=== PATIENT | male | born 1935 | race Caucasian/White ===

== ENCOUNTER 2021-09-26 16:01 | Inpatient (IN) | payer MEDICARE ==
[~2021-09-26] VITALS: Ht 180.3 cm; Wt 72.7 kg
--- NOTE | 2021-09-26 20:15 | EKG ---
[facility] [address] [facility] [place], [place] [address] Signed Atrial fibrillation with rapid ventricular response ST \T\ T wave abnormality, consider anterior ischemia Abnormal ECG No previous ECGs available Confirmed by CORNELIA CUNNINGHAM MD ([id number] on 09/26/2021 8:15:02 PM Electronically Signed By: CORNELIA CUNNINGHAM MD 09/26/212014 PATIENT NAME: JOSE WRIGHT Electrocardiogram DATE OF : [birth year] PHYSICIAN: CORNELIA CUNNINGHAM MD REPORT #: [id number] REPORT IS CONFIDENTIAL AND NOT TO BE RELEASED WITHOUT AUTHORIZATION
[2021-09-27] MEDS ORDERED: ACETAMINOPHEN325 M1 PO (04:23)
[2021-09-27] MEDS ORDERED: LACTOBACILLUS1 EAC2 PO (04:25)
[2021-09-27] MEDS ORDERED: AMIODARONE HCL200 MG PO (04:26)
[2021-09-27] MEDS ORDERED: AMITRIPTYLINE H25 MG PO (04:27)
[2021-09-27] MEDS ORDERED: FERROUS SULFAT325 M2 PO (04:28)
[2021-09-27] MEDS ORDERED: GLUCAGON EMERGEN1 MG IM (04:32)
[2021-09-27] MEDS ORDERED: SENNA8.6 MG PO (04:32)
[2021-09-27] MEDS ORDERED: VITAMIN C500 M1 PO (04:33)
[2021-09-27] MEDS ORDERED: METOPROLOL SUCC25 MG PO (10:23)
[2021-09-27] MEDS ORDERED: ALLOPURINOL100 MG PO (10:24)
[2021-09-27] MEDS ORDERED: ELIQUIS2.5 MG PO (10:27)
[2021-09-27] MEDS ORDERED: SIMVASTATIN10 MG PO (10:28)
[2021-09-27] MEDS ORDERED: DIGOXIN125 MCG PO (10:29)
[2021-09-27] MEDS ORDERED: PROBIOTIC ACID1 EAC2 PO (11:38)
[2021-09-27] MEDS ORDERED: DULCOLAX10 MG PR (11:40)
[2021-10-04] MEDS ORDERED: FERROUS SULFAT325 M2 PO (13:52)
[2021-10-04] MEDS ORDERED: SUCRALFATE1 GM PO (13:55)
[2021-10-04] MEDS ORDERED: PANTOPRAZOLE SO40 MG PO (13:56)
== END 2021-10-04 15:00 | DRG 811 ==
LOC: ED 16:01 → CCU 18:48 → EDBD 18:48 → MS 10-01 15:18
PROVIDERS: ADMIT Internal Medicine; ATTEND Internal Medicine
PROC: 30233N1 Transfusion of Nonautologous Red Blood Cells into Peripheral Vein, Percutaneous Approach (ICD-10-PCS; principal; 2021-09-26)
PROC: 3E033XZ Introduction of Vasopressor into Peripheral Vein, Percutaneous Approach (ICD-10-PCS; 2021-09-26)
DX: D62 Acute posthemorrhagic anemia (principal); L89.154 Pressure ulcer of sacral region, stage 4; R57.1 Hypovolemic shock; R57.0 Cardiogenic shock; I50.23 Acute on chronic systolic (congestive) heart failure; R57.8 Other shock; N30.00 Acute cystitis without hematuria; N17.9 Acute kidney failure, unspecified; K92.1 Melena; Z66 Do not resuscitate; Z20.822 Contact with and (suspected) exposure to COVID-19; N18.30 Chronic kidney disease, stage 3 unspecified; E11.51 Type 2 diabetes mellitus with diabetic peripheral angiopathy without gangrene; E11.22 Type 2 diabetes mellitus with diabetic chronic kidney disease; N31.9 Neuromuscular dysfunction of bladder, unspecified; D69.6 Thrombocytopenia, unspecified; I48.0 Paroxysmal atrial fibrillation; E78.5 Hyperlipidemia, unspecified; E79.0 Hyperuricemia without signs of inflammatory arthritis and tophaceous disease; B96.5 Pseudomonas (aeruginosa) (mallei) (pseudomallei) as the cause of diseases classified elsewhere; Z79.01 Long term (current) use of anticoagulants; Z88.0 Allergy status to penicillin; Z79.899 Other long term (current) drug therapy
CPT/HCPCS: 36415; 71045; 80048; 80053; 81001; 82533; 82728; 83615; 83735; 83880; 84484; 85025; 85060; 85610; 85730; 86704; 86706; 86803; 86850; 86870; 86900; 86901; 86922; 87040; 87088; 87186; 87338; 87340; 87502; 93005; 93010; 93306; 94640; 94660; 94760; 97162; 97166; 97530; A9270; C9113; C9803; J0692; J1200; J1568; J1630; J1940; J1956; J2060; J2270; J3475; J7030; J7121; P9016; P9035; U0003